=== PATIENT | male | born 1955 | race Caucasian/White ===

== ENCOUNTER 2016-11-05 07:20 | Day surgery (SDC) | payer MEDICARE, BC ==
[2016-11-02 11:25] VITALS: BMI 29.1
[~2016-11-05 07:20] MED LIST: LACTATED RINGERS 1,000 ML IV SCH; LIDOCAINE 1% 20 ML VIAL (10MG/ML) FOR IV START INTRADERMA PRN
[2016-11-05 07:39] VITALS: RESP 18; TEMP 98
[2016-11-05] MEDS ORDERED: LIDOCAINE 1% INJ 10MG/ML (20 ML MDV) ONE (08:15)
[2016-11-05] MEDS ORDERED: PROPOFOL 10 MG/ML 20 ML VIAL IV ONE (08:15)
--- NOTE | 2016-11-05 08:58 | P.PCN ---
Date of Procedure: 11/05/16 Preoperative Diagnosis: Screening for colon cancer, history of colon polyps Postoperative Diagnosis: Screening for colon polyps Procedure(s) Performed: Colonoscopy with polypectomy and biopsy using cold biopsy forceps Implants: Anesthesia: ISAIAS Surgeon: Corie Robison Pathology: other Condition: stable Indications for Procedure: Operative Findings: Description of Procedure: The patient was brought to the endoscopy suite and placed in lateral decubitus position. IV sedation was given as per anesthesia team. A timeout was performed to verify correct patient and correct procedure.Perianal examination did not reveal any external hemorrhoids. Digital rectal examination was performed. Normal sized prostate. A well- lubricated endoscope was passed per rectally and was gradually advanced beyond the sigmoid colon, splenic flexure, transverse colon, hepatic flexure and cecum. The ileocecal valve was visualized. Then minimal diverticulosis noted without any evidence of diverticulitis. Scope was gradually withdrawn inspecting all the mucosal surfaces. Polyps were seen in the descending colon at and removed with a cold biopsy forceps. Another polyp was seen in the rectum that was removed witha cold biopsy forcpes. Bowel prep was good. No other polyps or masses noted. Retroflexed in the rectum and multiple grade 2 internal hemorrhoids were noted which was not bleeding at this time.Colon was spastic and redundant. The scope was gradually withdrawn. Patient tolerated the procedure well and was taken to post anesthesia care unit in stable condition. Recommend repeat colonoscopy in 3 years
[2016-11-05 09:26] VITALS: BP 127/66; PULSE 60
== END 2016-11-05 09:44 | disposition home or self-care (01) ==
LOC: ORWHC2ENDO 07:20
PROVIDERS: ATTEND Surgery
DX: Z12.11 Encounter for screening for malignant neoplasm of colon (principal); D12.4 Benign neoplasm of descending colon; K62.1 Rectal polyp; K57.30 Diverticulosis of large intestine without perforation or abscess without bleeding; K64.1 Second degree hemorrhoids; K58.9 Irritable bowel syndrome, unspecified; Q43.8 Other specified congenital malformations of intestine; K21.9 Gastro-esophageal reflux disease without esophagitis; E11.9 Type 2 diabetes mellitus without complications; Z79.84 Long term (current) use of oral hypoglycemic drugs; I10 Essential (primary) hypertension; E78.5 Hyperlipidemia, unspecified; Z79.82 Long term (current) use of aspirin; Z79.899 Other long term (current) drug therapy; M10.9 Gout, unspecified; J84.89 Other specified interstitial pulmonary diseases
CPT/HCPCS: 88305; 45380; J2001; J2704

== ENCOUNTER → 2016-12-10 | Outpatient (CLI) | payer MEDICARE, BC ==
--- NOTE | 2016-12-10 11:49 | PN ---
PROGRESS NOTE A 61-year-old gentleman who has been followed in the Sleep Center for treatment of obstructive sleep apnea-hypopnea syndrome. Patient continued to use his BiPAP equipment every night without problems. No snoring with the machine. [place] Sleepiness Scale today is only 3. I checked patient's BiPAP unit. Pressure is 14/10 cm of water. Usage is 30/30 nights for more than 4 hours. Average usage is 6.6 hours. Leak is 29 L/minute, which is borderline and acceptable. Apnea-hypopnea index is only 0.2 per hour which is extremely good results. MEDICATIONS: At the present time are Klor-Con, metformin, furosemide, allopurinol, omeprazole, atorvastatin, magnesium, vitamin D, and aspirin. PHYSICAL EXAM: Patient in no distress. BP 120/72, HR 66, RR 16. height 5, 10, weight 274, which is 2 pounds less than during previous visit, BMI 33.5, temperature 97.7, oxygen saturation at room air 98%. OROPHARYNX: Moderate low position of soft palate. Neck Supple, no JVD. Thyroid is not palpable. LUNGS Clear to percussion and to auscultation. Good air exchange. No wheezing or rhonchi. HEART S1, S2 regular. No murmurs, gallops, or rubs. ABDOMEN Soft and nontender. Bowel sounds are present. No organomegaly appreciated. EXTREMITIES No clubbing or cyanosis. PRECISION THREAD GRINDER OPERATOR Awake, alert, and oriented X3. Cranial nerves 2 to 7 intact. There is no fasciculation or atrophy. noted. No focal deficits observed. IMPRESSION: 1. Obstructive sleep apnea-hypopnea syndrome, on full control with BiPAP. Patient demonstrated 100% compliance with treatment benefitting from treatment. 2. Hypertension. 3. Acid reflux. 4. Gout. 5. Diabetes mellitus. 6. Hyperlipidemia. 7. Status post left hip replacement, status post bilateral hip replacement. 8. Status post leg surgery. PLAN: 1. Continue treatment with BiPAP every night for the whole night. 2. Prescription for all necessary BiPAP supplies, including mask, tube, filters. 3. Losing weight. 4. Sleep hygiene with regular time in bed for at least 8 hours. 5. Followup visit in 1 year or sooner if patient has any problems. Thank you very much for allowing me to participate in the management of your patient. Sincerely, Donnie Montgomery MD, PhD, FAASM Diplomat of [place] [employer] [employer] Dredge Lever Operator of [facility] [place] MMMILDRED / AMELIA: [id number] /
== END | disposition home or self-care (01) ==
LOC: SLEEP 10:38
PROVIDERS: ATTEND Internal Medicine
DX: G47.33 Obstructive sleep apnea (adult) (pediatric) (principal); I10 Essential (primary) hypertension; K21.9 Gastro-esophageal reflux disease without esophagitis; E78.5 Hyperlipidemia, unspecified; Z96.642 Presence of left artificial hip joint; Z96.641 Presence of right artificial hip joint; Z98.890 Other specified postprocedural states

== ENCOUNTER → 2017-12-09 | Outpatient (CLI) | payer MEDICARE, BC ==
--- NOTE | 2017-12-09 12:36 | SFUN ---
SLEEP CENTER FOLLOW UP NOTE DATE OF SERVICE: 12/09/2017 A 62-year-old gentleman who has been followed in the Sleep Center for treatment of obstructive sleep apnea-hypopnea syndrome. Patient successfully continued to use his CPAP equipment every night for the whole night without significant problems. Recently some changes in the base of his chamber for heated humidifier. [place] Sleepiness Scale today is only 2. I checked his BiPAP unit, pressure is 14/10 cm of water. Usage is 28/30 nights for more than 4 hours. Average usage is 6.2 hours. Leak is up to 36 L/minute, but total apnea- hypopnea index is perfect only 0.2. MEDICATIONS: Klor-Con, metformin, furosemide, allopurinol, omeprazole, atorvastatin, aspirin, vitamin B12. PHYSICAL EXAM: Patient in no distress. BP 131/83, HR 89, RR 16, height 5, 10, weight 230.0, body mass index 33.0, temperature 97.0, oxygen saturation at room air 98%. OROPHARYNX: Low position of soft palate. Neck Supple, no JVD. Thyroid is not palpable. LUNGS Clear to percussion and to auscultation. Good air exchange. No wheezing or rhonchi. HEART S1, S2 regular. No murmurs, gallops, or rubs. ABDOMEN Soft and nontender. Bowel sounds are present. No organomegaly appreciated. EXTREMITIES No clubbing or cyanosis. ROAD MACHINE OPERATOR Awake, alert, and oriented X3. Cranial nerves 2 to 7 intact. There is no fasciculation or atrophy. noted. No focal deficits observed. IMPRESSION: 1. Obstructive sleep apnea-hypopnea syndrome. Patient demonstrated great compliance with treatment, benefitting from treatment. 2. Mild obesity, body mass index 33.0. 3. Hypertension. 4. Acid reflux. 5. Gout. 6. Diabetes mellitus. 7. Hyperlipidemia. 8. Status post bilateral hip replacement. PLAN: 1. Patient will continue to use his BiPAP equipment every night for the whole night. 2. Prescription to replace chamber for heated humidifier and prescription for all necessary BiPAP supplies. 3. Watching weight. 4. No driving if feeling any sleepiness. 5. Followup visit in 1 year or earlier if patient has any problems. Thank you very much for allowing me to participate in the management of your patient. Sincerely, Donnie Montgomery MD, PhD, FAASM Diplomat of [employer] [employer] Specialties [employer] [employer] of Internal Medicine Route Clerk of [facility] [place] MMMILDRED / ROMANN: [id number] /
== END | disposition home or self-care (01) ==
LOC: SLEEP 11:43
PROVIDERS: ATTEND Internal Medicine
DX: G47.33 Obstructive sleep apnea (adult) (pediatric) (principal); E66.9 Obesity, unspecified; I10 Essential (primary) hypertension; K21.9 Gastro-esophageal reflux disease without esophagitis; M10.9 Gout, unspecified; E11.9 Type 2 diabetes mellitus without complications; E78.5 Hyperlipidemia, unspecified; Z96.643 Presence of artificial hip joint, bilateral; Z68.33 Body mass index [BMI] 33.0-33.9, adult; Z99.89 Dependence on other enabling machines and devices; Z79.84 Long term (current) use of oral hypoglycemic drugs; Z79.82 Long term (current) use of aspirin; Z79.899 Other long term (current) drug therapy

== ENCOUNTER → 2018-12-15 | Outpatient (CLI) | payer MEDICARE, BC ==
--- NOTE | 2018-12-15 11:11 | SFUN ---
SLEEP CENTER FOLLOW UP NOTE DATE OF SERVICE: 12/15/2018 This 63-year-old gentleman had been followed in the sleep center for treatment of obstructive sleep apnea-hypopnea syndrome. Patient successfully continuing to use his CPAP equipment every night for the whole night without significant problems related to mask fitting, pressure or humidification. He sleeps well. [place] Sleepiness Scale today is 1. I checked his BiPAP unit. BiPAP pressure is 14/10 cm of water. Usage is 28 out of 30 nights and 25 out of 30 nights for more than 4 hours with average usage 5.4 hours. Leak 28 L/minutes which is borderline. Apnea-hypopnea index only 0.1, which is absolutely perfect. MEDICATIONS: Metformin, furosemide, allopurinol, Klor-Con, omeprazole, atorvastatin, aspirin, vitamin B12. PHYSICAL EXAMINATION: During physical exam, patient in no distress. VITAL SIGNS: BP 121/72, HR 68, RR 16, height 5 feet 10 inches, weight 225, body mass index 32.2, temperature 97.0, oxygen saturation at room air 97% HEENT: PERRLA, EOMI. Oropharynx low position of soft palate. Mallampati 3. NECK:Supple, no JVD. Thyroid is not palpable. LUNGS: Clear to percussion and to auscultation. Good air exchange. No wheezing or rhonchi. HEART: S1, S2 regular. No murmurs, gallops, or rubs. ABDOMEN: Soft and nontender. Bowel sounds are present. No organomegaly appreciated. EXTREMITIES: No clubbing or cyanosis. MANAGER CASINO: Awake, alert, and oriented X3. Cranial nerves 2 to 7 intact. There is no fasciculation or atrophy. noted. No focal deficits observed. IMPRESSION: 1. Obstructive sleep apnea-hypopnea syndrome. Patient demonstrated great compliance with treatment, benefitting from treatment. 2. Hypertension. 3. Acid reflux. 4. Mild obesity, body mass index 32.2. 5. Gout. 6. Hyperlipidemia. 7. Status post bilateral hip replacement. PLAN: 1. Patient will continue to use BiPAP equipment every night for the whole night. 2. Sleep hygiene with regular time in bed for at least 7-1/2 hours. 3. Precautions related to driving. No driving if feeling sleepiness. 4. Prescription for all necessary CPAP supplies including nasal pillow mask, heated tube filters. 5. Decision made not necessary to change any of BiPAP pressure at the present time. 6. Follow-up appointment in one year or earlier if patient has any problems. Thank you very much for allowing me to participate in management of your patient. Sincerely, Donnie Montgomery MD, PhD, FAASM Diplomat of [place] [employer] Special[employer] Board of Internal Medicine Prospect Manager of [facility] [place] MMODL / IJN: [id number] /
== END | disposition home or self-care (01) ==
LOC: SLEEP 09:47
PROVIDERS: ATTEND Internal Medicine
DX: G47.33 Obstructive sleep apnea (adult) (pediatric) (principal); I10 Essential (primary) hypertension; K21.9 Gastro-esophageal reflux disease without esophagitis; E66.9 Obesity, unspecified; Z68.32 Body mass index [BMI] 32.0-32.9, adult; M10.9 Gout, unspecified; E78.5 Hyperlipidemia, unspecified; Z96.643 Presence of artificial hip joint, bilateral; Z99.89 Dependence on other enabling machines and devices; Z79.84 Long term (current) use of oral hypoglycemic drugs; Z79.82 Long term (current) use of aspirin; Z79.899 Other long term (current) drug therapy

== ENCOUNTER → 2019-11-30 | Outpatient (CLI) | payer MEDICARE, BC ==
--- NOTE | 2019-11-30 18:25 | SFUN ---
SLEEP CENTER FOLLOW UP NOTE DATE OF SERVICE: 11/30/2019 This patient is a 65-year-old gentleman who has been followed in Sleep Center for treatment of obstructive sleep apnea-hypopnea syndrome. Patient continues to use his CPAP equipment every night for the whole night. He is getting new supplies in time. No snoring with the machine. [place] Sleepiness Scale today is 2, which is normal. I checked his BiPAP unit. Pressure is 14/10 cm of water, usage 28/30 nights for more than 4 hours with average usage 5 hours per night, which is good compliance. Leak is 13 L/minute, which is borderline. Apnea-hypopnea index only 0.1, which is absolutely perfect. MEDICATIONS: 1. Metformin 1000 mg b.i.d. 2. Potassium supplement 20 mEq b.i.d. 3. Furosemide 40 mg once a day. 4. Omeprazole 40 mg once a day. 5. Atorvastatin 10 mg once a day. 6. Allopurinol 300 mg once a day. PHYSICAL EXAMINATION: GENERAL: A pleasant patient in no distress. VITAL SIGNS: BP 118/74, HR 74, RR 16, height 5 feet 10 inches, weight 231.2. The patient's weight increased by 6 pounds compared to the previous visit. Temperature 97.6, oxygen saturation on room air 100%. HEENT: PERRLA, EOMI. Evaluation of oropharynx showed tongue protrudes midline. NECK: Supple. No JVD. Thyroid is not palpable. LUNGS: Clear to percussion and to auscultation. Good air exchange. No wheezing or rhonchi. HEART: S1, S2 regular. No murmurs, gallops or rubs. ABDOMEN: Soft and nontender. Bowel sounds are present. No organomegaly. EXTREMITIES: No clubbing or cyanosis. RESEARCH ENVIRONMENTAL SCIENTIST: Awake, alert, and oriented X3. Cranial nerves 2 to 7 intact. There is no fasciculation or atrophy. noted. No focal deficits observed. IMPRESSION: 1. Obstructive sleep apnea-hypopnea syndrome. The patient demonstrated close to 100% compliance with treatment, benefitting from treatment. 2. Mild obesity. Patient's weight increased by 6 pounds since previous visit. 3. Hypertension. Today blood pressure is normal. 4. Acid reflux. 5. Gout. 6. Hyperlipidemia. 7. Status post bilateral hip replacement. PLAN: 1. Patient will continue to use PAP equipment every night for the whole night. 2. Sleep hygiene with regular time in bed for at least 7-1/2 to 8 hours. 3. Precautions related to driving. No driving if feeling sleepiness. 4. I will maintain all necessary prescription for PAP supplies including mask, tube, filters. 5. Watching weight. 6. No driving if feeling sleepiness. 7. Follow-up visit in 6 months or earlier if patient has any problems. Thank you very much for allowing me to participate in the management of your patient. Sincerely, Donnie Montgomery MD, PhD, FAASM Diplomat of [place] [employer] Special[employer] [employer] of Internal Medicine Mail Handler Sorter of [facility] [place] MMODL / IJN: [id number] /
== END | disposition home or self-care (01) ==
LOC: SLEEP 10:03
PROVIDERS: ATTEND Internal Medicine
DX: G47.33 Obstructive sleep apnea (adult) (pediatric) (principal); E66.9 Obesity, unspecified; I10 Essential (primary) hypertension; K21.9 Gastro-esophageal reflux disease without esophagitis; M10.9 Gout, unspecified; E78.5 Hyperlipidemia, unspecified; Z96.643 Presence of artificial hip joint, bilateral; Z99.89 Dependence on other enabling machines and devices; Z79.891 Long term (current) use of opiate analgesic; Z79.899 Other long term (current) drug therapy; Z79.84 Long term (current) use of oral hypoglycemic drugs

== ENCOUNTER → 2020-06-06 | Outpatient (CLI) | payer MEDICARE, BC ==
--- NOTE | 2020-06-06 11:38 | SFUN ---
SLEEP CENTER FOLLOW UP NOTE DATE OF SERVICE: 06/06/2020 This 65-year-old gentleman has been followed in Sleep Center for treatment of obstructive sleep apnea-hypopnea syndrome. The patient continues to use his BiPAP equipment every night. No snoring with the machine. He lost some weight since previous visit. According to him, he is getting his supplies in time and changing his mask regularly. [place] Sleepiness Scale today is 2 which is normal. I checked his BiPAP unit. BiPAP pressure 14/10 cm of water, usage 29 out of 30 nights more than 4 hours, average usage 5.6 hours per night. Leak is 17 L/minute, which is borderline. Apnea-hypopnea index only 0.1, which is perfect. MEDICATIONS: Metformin 1000 mg twice a day, furosemide 40 mg once a day, potassium supplement 20 mEq twice a day, omeprazole 40 mg once a day, atorvastatin 10 mg once a day, allopurinol 300 mg once a day. PHYSICAL EXAMINATION: GENERAL: Patient in no distress. VITAL SIGNS: BP 124/79, HR 87, RR 15, height 5 feet 10-1/2 inches, weight 205.2, temperature 98.3, oxygen saturation at room air 98%. HEENT: PERRLA, EOMI, evaluation of oropharynx showed tongue protrudes midline. NECK: Supple, no JVD. Thyroid is not palpable. LUNGS: Clear to percussion and to auscultation. Good air exchange. No wheezing or rhonchi. HEART: S1, S2 regular. No murmurs, gallops, or rubs. ABDOMEN: Soft and nontender. Bowel sounds are present. No organomegaly appreciated. EXTREMITIES: No clubbing or cyanosis. PHY THERAPIST: Awake, alert, and oriented X3. Cranial nerves 2 to 7 intact. There is no fasciculation or atrophy. noted. No focal deficits observed. IMPRESSION: 1. Obstructive sleep apnea-hypopnea syndrome. The patient demonstrated 100% compliance with treatment, benefitting from treatment. 2. Hypertension. 3. Acid reflux. 4. Gout. 5. Hyperlipidemia. 6. Status post bilateral hip replacement in 2011 and 2015. 7. The patient lost weight from 231 pounds down to 205 pounds. Subsequently his body mass index came to the level of overweight but below obesity range. With losing weight, patient's blood sugar also improved. PLAN: 1. Patient will continue to use PAP equipment every night for the whole night. 2. Sleep hygiene with regular time in bed for at least 7-1/2 to 8 hours. 3. Precautions related to driving. No driving if feeling sleepiness. 4. I will maintain all necessary prescription for PAP supplies including mask, tube, filters. 5. Watching weight. 6. Follow-up visit in 6 months or earlier if patient has any problems. Thank you very much for allowing me to participate in management of your patient. Sincerely, Donnie Montgomery MD, PhD, FAASM Diplomat of [place] [employer] Specialties [place] Board of Internal Medicine Oracle Specialist of [facility] [place] MMODL / IJN: [id number] /
== END ==
LOC: SLEEP 09:59
PROVIDERS: ATTEND Internal Medicine
DX: G47.33 Obstructive sleep apnea (adult) (pediatric) (principal); I10 Essential (primary) hypertension; K21.9 Gastro-esophageal reflux disease without esophagitis; M10.9 Gout, unspecified; E78.5 Hyperlipidemia, unspecified; Z96.643 Presence of artificial hip joint, bilateral; Z99.89 Dependence on other enabling machines and devices

== ENCOUNTER → 2020-12-12 | Outpatient (CLI) | payer MEDICARE, BC ==
--- NOTE | 2020-12-12 12:06 | SFUN ---
SLEEP CENTER FOLLOW UP NOTE DATE OF SERVICE: 12/12/2020 This 65-year-old gentleman has been followed in Sleep Center for treatment of obstructive sleep apnea-hypopnea syndrome. The patient continues to use his BiPAP equipment every night for the whole night. No problem with usage. No snoring. [place] Sleepiness Scale today is 2. I checked his BiPAP unit. Pressure is 14/10 cm of water. Usage is 28/30 nights and 24/30 nights for more than 4 hours with average usage 4.8 hours per night. Leak is 8 L/minute, which is in normal range. Apnea-hypopnea index is only 0.1, which is absolutely perfect. MEDICATIONS: 1. Furosemide 40 mg once a day. 2. Potassium supplement. 3. Omeprazole 40 mg once a day. 4. Metformin 1000 mg twice a day. 5. Atorvastatin 10 mg once a day. 6. Allopurinol 300 mg once a day. PHYSICAL EXAMINATION: GENERAL: Pleasant patient in no distress. VITAL SIGNS: BP 138/73, HR 77, RR 15, height 5 feet 11 inches, weight 215, body mass index 29.9. The patient's weight increased by 10 pounds compared to the previous visit. HEENT: PERRLA, EOMI, evaluation of oropharynx showed tongue protrudes midline. NECK: Supple, no JVD. Thyroid is not palpable. LUNGS: Clear to percussion and to auscultation. Good air exchange. No wheezing or rhonchi. HEART: S1, S2 regular. No murmurs, gallops, or rubs. ABDOMEN: Soft and nontender. Bowel sounds are present. No organomegaly appreciated. EXTREMITIES: No clubbing or cyanosis. ORDER PULLER: Awake, alert, and oriented X3. Cranial nerves 2 to 7 intact. There is no fasciculation or atrophy. noted. No focal deficits observed. IMPRESSION: 1. Obstructive sleep apnea-hypopnea syndrome. Patient demonstrated great compliance with treatment. Normal respiration on CPAP. 2. Hypertension. 3. Acid reflux. 4. Gout. 5. Hyperlipidemia. 6. Status post bilateral hip replacement. PLAN: 1. Patient will continue to use PAP equipment every night for the whole night. 2. Sleep hygiene with regular time in bed for at least 7-1/2 to 8 hours. 3. Precautions related to driving. No driving if feeling sleepiness. 4. I will maintain all necessary prescription for PAP supplies including mask, tube, filters. 5. Watching weight. 6. Follow-up visit in 6 months or earlier if patient has any problems. Thank you very much for allowing me to participate in the management of your patient. Sincerely, Donnie Montgomery MD, PhD, FAASM Diplomat of [place] [employer] Sleep Medicine Board of [place] [employer] of Internal Medicine Landscape Maintenance Internship of [facility] [place] MMODL / ROMANN: [id number] /
== END ==
LOC: SLEEP 09:49
PROVIDERS: ATTEND Internal Medicine
DX: G47.33 Obstructive sleep apnea (adult) (pediatric) (principal); I10 Essential (primary) hypertension; K21.9 Gastro-esophageal reflux disease without esophagitis; E78.5 Hyperlipidemia, unspecified; M10.9 Gout, unspecified; Z99.89 Dependence on other enabling machines and devices; Z96.643 Presence of artificial hip joint, bilateral; Z79.899 Other long term (current) drug therapy

== ENCOUNTER → 2021-06-12 | Outpatient (CLI) | payer MEDICARE, BC ==
--- NOTE | 2021-06-12 13:05 | SFUN ---
SLEEP CENTER FOLLOW UP NOTE DATE OF SERVICE: 06/12/2021. 66-year-old gentleman has been followed in Sleep Center for treatment of obstructive sleep apnea-hypopnea syndrome. Patient continued to use his CPAP equipment every night for the whole night. No snoring with the machine. [place] Sleepiness Scale today is 2 which is absolutely normal. I checked his BiPAP unit. Pressure is 14/10 cm of water. Usage is 29/30 nights and 26/30 nights for more than 4 hours. Average usage 4.9 hours per night which is good compliance. Leak is 12 L/minute, which is normal. Apnea-hypopnea index only 0.1 per hour which is perfect. MEDICATIONS: Metformin 1000 mg twice a day, omeprazole 40 mg once a day, furosemide 40 mg once a day, atorvastatin 10 mg once a day, allopurinol 300 mg once a day. PHYSICAL EXAMINATION: GENERAL: Patient in no distress. BP 148/75, HR 91, RR 16, height 5 feet 11 inches, weight 220.6 pounds. Patient increased his weight 5 pounds compared with the previous visit. Temperature 97.3, oxygen saturation at room air 97%. HEENT: PERRLA, EOMI, evaluation of oropharynx showed tongue protrudes midline. NECK: Supple, no JVD. Thyroid is not palpable. LUNGS: Clear to percussion and to auscultation. Good air exchange. No wheezing or rhonchi. HEART: S1, S2 regular. No murmurs, gallops, or rubs. ABDOMEN: Soft and nontender. Bowel sounds are present. No organomegaly appreciated. EXTREMITIES: No clubbing or cyanosis. RENDERER: Awake, alert, and oriented X3. Cranial nerves 2 to 7 intact. There is no fasciculation or atrophy. noted. No focal deficits observed. IMPRESSION: 1. Obstructive sleep apnea-hypopnea syndrome patient demonstrated close to 100% compliance with treatment benefitting from treatment. 2. Hypertension. 3. Hyperlipidemia. 4. Acid reflux. 5. Gout. 6. Status post bilateral hip replacement. PLAN: 1. New prescription for all necessary CPAP supplies have been written including Atkinson LT large size nasal pillow mask, tube filters. 2. Patient will continue to use PAP equipment every night for the whole night. 3. Sleep hygiene with regular time in bed for at least 7-1/2 to 8 hours. 4. Precautions related to driving. No driving if feeling sleepiness. 5. I will maintain all necessary prescription for PAP supplies including mask, tube, filters. 6. Watching weight. 7. Follow-up visit in 6 months or earlier if patient has any problems. Thank you very much for allowing me to participate in management of your patient. Sincerely, Donnie Montgomery MD, PhD, FAASM Diplomat of [place] [employer] Specialties Sleep Medicine Board of [employer] Board of Internal Medicine Coat Presser of [facility] [place] MMODL / IJN: [id number] /
== END ==
LOC: SLEEP 09:52
PROVIDERS: ATTEND Internal Medicine
DX: G47.33 Obstructive sleep apnea (adult) (pediatric) (principal); I10 Essential (primary) hypertension; E78.5 Hyperlipidemia, unspecified; K21.9 Gastro-esophageal reflux disease without esophagitis; M10.9 Gout, unspecified; Z96.643 Presence of artificial hip joint, bilateral; Z99.89 Dependence on other enabling machines and devices

== ENCOUNTER → 2022-01-08 | Outpatient (CLI) | payer MEDICARE, BC ==
--- NOTE | 2022-01-08 10:39 | P.PN ---
Subjective DATE: 01/08/2022 FOLLOW UP VISIT. Patient with obstructive sleep apnea hypopnea syndrome return to sleep center for follow-up visit. Information from previous visit have been reviewed. Patient is using BPAP equipment every night for the whole night, getting BPAP supplies in time. The patient does not have significant problems with the mask, BPAP unit and humidification. [place] sleepiness scale is2, which is perfect. I checked information from BPAP unit. BPAP unit pressure 14/10 cm H2O. Usage is 100 % for more then 4 hours, average 7.1 hours per night. Leak is 12 l/m, which is in acceptable range. Apnea Hypopnea Index is 0.3, which is great. MEDICATIONS:1. Metformin 1000 mg twice a day 2. Omeprazole 40 mg once a day 3. For as she might 30 mg once a day 4. Atorvastatin 10 mg once a day 5. Allopurinol 300 mg once a day During physical exam: GENERAL: A pleasant patient without any distress. VITAL SIGNS: BP 162/78, HR 88, RR 16, weight 215, temperature 98.2, oxygen saturation at room air 99 % . HEENT: PERRLA, EOMI.low position of soft palate, Mallapati 3 . NECK: Supple. No JVD. LUNGS: Clear to percussion and to auscultation. Good air exchange. No wheezing or rhonchi. HEART: S1, S2 regular. ABDOMEN: Soft and nontender.[] EXTREMITIES: No clubbing or cyanosis. DRIVER UTILITY WORKER: Awake, alert, and oriented x3. No focal deficit. Impressions: 1. Obstructive sleep apnea-hypopnea syndrome. Patient demonstrated great compliance with treatment, benefiting from treatment. 2. Hypertension. 3. Hyperlipidemia. 4. Acid reflux. 5. Gout. 6. Status post bilateral hip replacement. Plan: 1. Continue using PAP equipment every night for the whole night. 2. To change air filter at least 1-2 times per month. 3. PAP unit should stay lower then position of the head. 4. Advised patient to remove all remaining water from humidifier canister daily and make it dry after each usage. Refill canister with fresh distilled water before each usage. 5. Sleep hygiene with regular time in bed for at least 8 hours. 6. Precautions related to driving. No driving if feel any sleepiness. 7. I will maintain prescription for PAP supplies including mask, tube, filters. 8. Follow up visit in 6 months or earlier if patient has any problems. 9. Watching weight. Thank you very much for allowing me to participate in the management of your patient. Donnie Montgomery MD, PhD, FAASM. Diplomat of [place] [employer] Medicine, Sleep Medicine Board by [place] [employer] Medicine Pumping Supervisor of [facility] [place]
== END ==
LOC: SLEEP 09:57
PROVIDERS: ATTEND Internal Medicine
DX: G47.33 Obstructive sleep apnea (adult) (pediatric) (principal); I10 Essential (primary) hypertension; E78.5 Hyperlipidemia, unspecified; M10.9 Gout, unspecified; K21.9 Gastro-esophageal reflux disease without esophagitis; Z96.643 Presence of artificial hip joint, bilateral; Z99.89 Dependence on other enabling machines and devices
CPT/HCPCS: 99212

== ENCOUNTER 2022-02-12 07:32 | Day surgery (SDC) | payer MEDICARE, BC ==
[2022-02-09 15:42] VITALS: BMI 28.2
[~2022-02-12 07:32] MED LIST changes: +LIDOCAINE 1% (10MG/ML) FOR IV START INTRADERMA PRN; -LIDOCAINE 1% 20 ML VIAL (10MG/ML) FOR IV START INTRADERMA PRN
--- NOTE | 2022-02-12 08:02 | P.GSHP ---
History of Present Illness H&P Date: 02/12/22 CHIEF COMPLAINT: Colon screen HISTORY OF PRESENT ILLNESS: The patient is a 66-year-old male who presents for colon screen. Lower endoscopy was offered for further evaluation and management. PAST MEDICAL HISTORY: Please see list. PAST SURGICAL HISTORY: Please see list. MEDICATIONS: Please see list. ALLERGIES: Please see list. SOCIAL HISTORY: No illicit drug use FAMILY HISTORY: No reports of Crohn disease or ulcerative colitis. REVIEW OF ORGAN SYSTEMS: CONSTITUTIONAL: No reports of fevers or chills. PHYSICAL EXAM: VITAL SIGNS: Stable GENERAL: Well-developed pleasant in no acute distress. HEENT: No scleral icterus. Extraocular movements grossly intact. Moist buccal mucosa. NECK: Supple without lymphadenopathy. CHEST: Unlabored respirations. Equal bilateral excursions. CARDIOVASCULAR: Regular rate and rhythm. Distal 2+ pulses. ABDOMEN: Soft, nontender, nondistended. MUSCULOSKELETAL: No clubbing, cyanosis, or edema. ASSESSMENT: 1. Colon screen. PLAN: 1. Recommend proceeding with a lower endoscopy Past Medical History Past Medical History: Diabetes Mellitus, Fibromyalgia, Pneumonia, Sleep Apnea/CPAP/BIPAP Additional Past Medical History / Comment(s): INTERSTITIAL LUNG DISEASE, PT DISABLED- USES MOTORIZED W/C. gout, uses BIPAP, leg swelling, has had hx. low platelets in the past thru Dr Ramsey's office-not sure why they are low, diverticular dx. History of Any Multi-Drug Resistant Organisms: None Reported Past Surgical History: Joint Replacement Additional Past Surgical History / Comment(s): Other surgical hx: L knee arthroscopy, TOTAL LEFT KNEE REPLACEMENT AND REVISION, TOTAL MARSHA. HIP, R LUNG BX AND PARTIAL RIGHT LUNG REMOVED, colonoscopy. Past Anesthesia/Blood Transfusion Reactions: No Reported Reaction Past Psychological History: No Psychological Hx Reported Smoking Status: Never smoker Past Alcohol Use History: None Reported Past Drug Use History: None Reported - Past Family History Mother Family Medical History: Congestive Heart Failure (CHF), Diabetes Mellitus Additional Family Medical History / Comment(s): Mother of CHF at the age of 66 yrs. Father Family Medical History: Dementia Additional Family Medical History / Comment(s): Father of dementia at the age of 77yrs. Medications and Allergies Home Medications Medication Instructions Recorded Confirmed Type Furosemide [Lasix] 40 mg PO DAILY 10/13/13 02/09/22 History Omeprazole [PriLOSEC] 40 mg PO DAILY 10/13/13 02/09/22 History Potassium Chloride [Klor-Con 20] 20 meq PO BID 10/13/13 02/09/22 History allopurinoL [Zyloprim] 300 mg PO DAILY 10/13/13 02/09/22 History metFORMIN HCL [Glucophage] 1,000 mg PO BID 10/13/13 02/09/22 History Atorvastatin [Lipitor] 10 mg PO DAILY 10/21/15 02/09/22 History Aspirin 325 mg PO DAILY #30 tab 10/31/15 02/09/22 Rx Hydrocortisone [Cortef] 10 mg PO DAILY 02/09/22 02/09/22 History Allergies Allergy/AdvReac Type Severity Reaction Status Date / Time No Known Allergies Allergy Verified 02/09/22 15:35
[2022-02-12 08:14] VITALS: TEMP 97.4
[2022-02-12 08:25] LABS: Glucose,Whole Blood 102 mg/dL (70-110)
[2022-02-12] MEDS ORDERED: LIDOCAINE 2% INJ 20 MG/ML (2 ML VIAL) ONE (09:40)
[2022-02-12] MEDS ORDERED: PROPOFOL 10 MG/ML 20 ML VIAL IV ONE (09:40)
--- NOTE | 2022-02-12 10:06 | P.PCN ---
Date of Procedure: 02/12/22 Description of Procedure: PREOPERATIVE DIAGNOSIS: Personal history colon polyps Colonoscopy screening. POSTOPERATIVE DIAGNOSIS: Personal history colon polyps Colonoscopy screening. OPERATION: Colonoscopy to the cecum, ileocecal valve and appendiceal orifice. SURGEON: Judi Joaquin MD. ANESTHESIA: MAC. INDICATIONS: The patient is a 66-year-old male who presents for colonoscopy screening. Last colonoscopy 5 years ago. Benefits and risks were described and informed consent was obtained. DESCRIPTION OF PROCEDURE: The patient had undergone Sutab prep. The patient had been brought into the operating room and laid in the left lateral decubitus position. After adequate intravenous sedation, the rectum was examined with 2% lidocaine jelly. Prostate unremarkable. No external hemorrhoids were encountered. The rectal tone was within normal limits. No lesions were palpated in the rectal vault. An Olympus colonoscope was advanced until the cecum, ileocecal valve and appendiceal orifice were clearly viewed. The prep was excellent. Scattered diverticulosis was encountered. No colonic polyps were found. No evidence of focal colitis was found. Retroflexion of the scope demonstrated grade 1 internal hemorrhoids without active bleeding or inflammation. The colon was desufflated. The patient had tolerated the procedure well. Withdrawal time was over 6 minutes. FINDINGS: Aronchick preparation quality scale 3 (1-5) Internal hemorrhoids, grade 1 No external prolapsed hemorrhoids. No arteriovenous malformations. No adenomatous polyps. No focal colitis. No sigmoid diverticulosis. RECOMMENDATIONS: Lower endoscopy in 5 years, 2026. Plan - Discharge Summary Discharge Rx Participant: No New Discharge Prescriptions: Continue Omeprazole [PriLOSEC] 40 mg PO DAILY allopurinoL [Zyloprim] 300 mg PO DAILY metFORMIN HCL [Glucophage] 1,000 mg PO BID Furosemide [Lasix] 40 mg PO DAILY Potassium Chloride [Klor-Con 20] 20 meq PO BID Atorvastatin [Lipitor] 10 mg PO DAILY Aspirin 325 mg PO DAILY #30 tab Hydrocortisone [Cortef] 10 mg PO DAILY Discharge Medication List Furosemide [Lasix] 40 mg PO DAILY 10/13/13 [History] Omeprazole [PriLOSEC] 40 mg PO DAILY 10/13/13 [History] Potassium Chloride [Klor-Con 20] 20 meq PO BID 10/13/13 [History] allopurinoL [Zyloprim] 300 mg PO DAILY 10/13/13 [History] metFORMIN HCL [Glucophage] 1,000 mg PO BID 10/13/13 [History] Atorvastatin [Lipitor] 10 mg PO DAILY 10/21/15 [History] Aspirin 325 mg PO DAILY #30 tab 10/31/15 [Rx] Hydrocortisone [Cortef] 10 mg PO DAILY 02/09/22 [History] Follow up Appointment(s)/Referral(s): Judi Joaquin MD [STAFF PHYSICIAN] - As Needed Patient Instructions/Handouts: Colonoscopy (DC) Activity/Diet/Wound Care/Special Instructions: Repeat colonoscopy in 5 years, 2026 Discharge Disposition: HOME SELF-CARE
[2022-02-12 10:16] VITALS: RESP 16
[2022-02-12 10:37] VITALS: BP 118/79; PULSE 68
== END 2022-02-12 10:46 | disposition home or self-care (01) ==
LOC: ORWHC2ENDO 07:32
PROVIDERS: ATTEND Surgery Plastic and Reconstructive Surgery
DX: Z12.11 Encounter for screening for malignant neoplasm of colon (principal); K64.0 First degree hemorrhoids; E11.9 Type 2 diabetes mellitus without complications; G47.33 Obstructive sleep apnea (adult) (pediatric); Z79.899 Other long term (current) drug therapy; Z79.84 Long term (current) use of oral hypoglycemic drugs; Z79.82 Long term (current) use of aspirin; Z96.652 Presence of left artificial knee joint; Z82.49 Family history of ischemic heart disease and other diseases of the circulatory system; Z86.010 Personal history of colon polyps
CPT/HCPCS: G0105; J2704; J2001; 45378

== ENCOUNTER → 2022-07-23 | Outpatient (CLI) | payer MEDICARE, BC ==
--- NOTE | 2022-07-23 10:56 | P.PN ---
Subjective DATE: 07/23/2022 FOLLOW UP VISIT. Patient with obstructive sleep apnea hypopnea syndrome return to sleep center for follow-up visit. Information from previous visit have been reviewed. Patient is using PAP equipment every night for the whole night, getting PAP supplies in time. The patient does not have significant problems with the mask, PAP unit and humidification. [place] sleepiness scale is 2, which is normal. I checked information from PAP unit. BPAP unit pressure 14/10 cm H2O. Usage is 100 % for more then 4 hours, average 7.6 hours per night. Leak is 14 l/m, which is in acceptable range. Apnea Hypopnea Index is 0.1, which is normal. MEDICATIONS:1. Allopurinol 300 mg once a day 2. Metformin 1000 mg twice a day 3. Omeprazole 40 mg once a day 4. Atorvastatin 10 mg once a day During physical exam: GENERAL: A pleasant patient without any distress. VITAL SIGNS: BP 137/79, HR 81, RR 12, weight 211, temperature 97.5, oxygen saturation at room air 97 % . HEENT: PERRLA, EOMI.low position of soft palate, Mallapati 3 . NECK: Supple. No JVD. LUNGS: Clear to percussion and to auscultation. Good air exchange. No wheezing or rhonchi. HEART: S1, S2 regular. ABDOMEN: Soft and nontender.[] EXTREMITIES: No clubbing or cyanosis. STEMHOLE BORER AND TOPPER: Awake, alert, and oriented x3. No focal deficit. Impressions: 1. Obstructive sleep apnea-hypopnea syndrome. Patient demonstrated great compliance with treatment, benefiting from treatment. 2. Diabetes mellitus. 3. Hypertension. 4. Acid reflux. 5. Gout. 6. Status post bilateral hip replacement. Plan: 1. Continue using PAP equipment every night for the whole night. 2. To change air filter at least 1-2 times per month. 3. PAP unit should stay lower then position of the head. 4. Advised patient to remove all remaining water from humidifier canister daily and make it dry after each usage. Refill canister with fresh distilled water before each usage. 5. Sleep hygiene with regular time in bed for at least 8 hours. 6. Precautions related to driving. No driving if feel any sleepiness. 7. I will maintain prescription for PAP supplies including mask, tube, filters. 8. Watching weight. 9. Follow up visit in 6 months or earlier if patient has any problems. Thank you very much for allowing me to participate in the management of your patient. Donnie Montgomery MD, PhD, FAASM. Diplomat of [place] [employer], Sleep Medicine Board by [place] [employer] Railroad Track Mechanic of [facility] [place]
== END | disposition home or self-care (01) ==
LOC: SLEEP 09:55
PROVIDERS: ATTEND Internal Medicine
DX: G47.33 Obstructive sleep apnea (adult) (pediatric) (principal); E11.9 Type 2 diabetes mellitus without complications; I10 Essential (primary) hypertension; K21.9 Gastro-esophageal reflux disease without esophagitis; M10.9 Gout, unspecified; Z96.643 Presence of artificial hip joint, bilateral; Z99.89 Dependence on other enabling machines and devices
CPT/HCPCS: 99212

== ENCOUNTER → 2023-07-15 | Outpatient (CLI) | payer MEDICARE, BC ==
[2023-07-15 10:51] VITALS: BP 125/65; PULSE 85; RESP 16; TEMP 97.8
--- NOTE | 2023-07-15 10:55 | P.PN ---
Subjective DATE: 07/15/2023 FOLLOW UP VISIT. Patient with obstructive sleep apnea hypopnea syndrome return to sleep center for follow-up visit. Information from previous visit have been reviewed. Patient is using PAP equipment every night for the whole night, getting PAP supplies in time. The patient does not have significant problems with the mask, PAP unit and humidification. [place] sleepiness scale is 2, which is normal. I checked information from PAP unit. PAP unit pressure 14/10 cm H2O. Usage is 80% for more then 4 hours, average 7.6 hours per night. Leak is 25 l/m, which is in acceptable range. Apnea Hypopnea Index is 0.2, which is normal. MEDICATIONS:1. Lisinopril 2.5 mg once a day 2. Metformin 1000 mg twice a day 3. Furosemide 40 mg once a day 4. Omeprazole 40 mg once a day 5. Hydrocortisone 5 mg once a day 6. Atorvastatin 10 mg once a day 7. Allopurinol 300 mg once a day During physical exam: GENERAL: A pleasant patient without any distress. VITAL SIGNS: Please see below. HEENT: PERRLA, EOMI.low position of soft palate, Mallapati 3 . NECK: Supple. No JVD. LUNGS: Clear to percussion and to auscultation. Good air exchange. No wheezing or rhonchi. HEART: S1, S2 regular. ABDOMEN: Soft and nontender.[] EXTREMITIES: No clubbing or cyanosis. SETTER OUT: Awake, alert, and oriented x3. No focal deficit. Impressions: 1. Obstructive sleep apnea-hypopnea syndrome. Patient demonstrated good compliance with treatment, benefiting from treatment. 2. Hypertension. 3. Diabetes mellitus. 4. Acid reflux. 5. Status post bilateral hip replacement. 6. Gout. Plan: 1. Continue using PAP equipment every night for the whole night. 2. To change air filter at least 1-2 times per month. 3. PAP unit should stay lower then position of the head. 4. Advised patient to remove all remaining water from humidifier canister daily and make it dry after each usage. Refill canister with fresh distilled water before each usage. 5. Sleep hygiene with regular time in bed for at least 8 hours. 6. Precautions related to driving. No driving if feel any sleepiness. 7. I will maintain prescription for PAP supplies including mask, tube, filters. 8. Follow up visit in 6 months or earlier if patient has any problems. 9. Watching weight. Thank you very much for allowing me to participate in the management of your patient. Donnie Montgomery MD, PhD, FAASM. Diplomat of [place] Board [employer] Sleep Medicine, Sleep Medicine Board by [place] [employer] of [employer] Medicine Senior Talent Acquisition Specialist of [facility] [place] Objective - Vital Signs Vital signs: Vital Signs Temp 97.8 F 07/15/23 10:22 Pulse 85 07/15/23 10:22 Resp 16 07/15/23 10:22 BP 125/65 07/15/23 10:22 Pulse Ox 100 07/15/23 10:22 FiO2
== END ==
LOC: 3 N SLEEP 09:58
PROVIDERS: ATTEND Internal Medicine
DX: G47.33 Obstructive sleep apnea (adult) (pediatric) (principal); I10 Essential (primary) hypertension; E11.9 Type 2 diabetes mellitus without complications; K21.9 Gastro-esophageal reflux disease without esophagitis; M10.9 Gout, unspecified; Z96.643 Presence of artificial hip joint, bilateral; Z99.89 Dependence on other enabling machines and devices; Z79.84 Long term (current) use of oral hypoglycemic drugs; Z79.899 Other long term (current) drug therapy
CPT/HCPCS: 99212

== ENCOUNTER → 2023-09-09 | Outpatient (CLI) | payer MEDICARE, BC ==
[2023-09-09 15:20] VITALS: BP 115/61; PULSE 80; RESP 16; TEMP 97.9
--- NOTE | 2023-09-09 15:42 | P.PROGSL ---
Subjective DATE: 09/09/2023 FOLLOW UP VISIT. Patient with obstructive sleep apnea hypopnea syndrome return to sleep center for follow-up visit. Information from previous visit have been reviewed. Patient is using PAP equipment every night for the whole night, getting PAP supplies in time. The patient does not have significant problems with the mask, BPAP unit and humidification. [place] sleepiness scale is 2, which is perfect. I checked information from BPAP unit. Motor life expectancy was exceeded PAP unit pressure 14/10 cm H2O. Usage is 100% for more then 4 hours, average 7.5 hours per night. Leak is 28 l/m, which is in acceptable range. Apnea Hypopnea Index is 0.1, which is normal. MEDICATIONS have been reviewed, please see below During physical exam: GENERAL: A pleasant patient without any distress. VITAL SIGNS: Please see below, weight 201 pounds, BMI 29.2. HEENT: PERRLA, EOMI.low position of soft palate, Mallapati 3. NECK: Supple. No JVD. LUNGS: Clear to percussion and to auscultation. Good air exchange. No wheezing or rhonchi. HEART: S1, S2 regular. ABDOMEN: Soft and nontender.[] EXTREMITIES: No clubbing or cyanosis. SERVICE COORDINATOR: Awake, alert, and oriented x3. No focal deficit. Impressions: 1. Obstructive sleep apnea-hypopnea syndrome. Patient demonstrated great compliance with treatment, benefiting from treatment. Motor life expectancy was exceeded. BiPAP unit is noisy. 2. Hypertension. 3. Diabetes mellitus. 4. Acid reflux. 5. Gout. 6. Status post bilateral hip replacement. Plan: 1. Continue using PAP equipment every night for the whole night. Prescription to replace BiPAP unit. 2. To change air filter at least 1-2 times per month. 3. PAP unit should stay lower then position of the head. 4. Advised patient to remove all remaining water from humidifier canister daily and make it dry after each usage. Refill canister with fresh distilled water before each usage. 5. Sleep hygiene with regular time in bed for at least 8 hours. 6. Precautions related to driving. No driving if feel any sleepiness. 7. I will maintain prescription for PAP supplies including mask, tube, filters. 8. Follow up visit in 1-3 months after patient will get new BiPAP unit or earlier if patient has any problems. Thank you very much for allowing me to participate in the management of your patient. Donnie Montgomery MD, PhD, FAASM. Diplomat of [place] [employer] Sleep Medicine, Sleep Medicine Board by [place] [employer] Medicine Behaviorist of [facility] [place] Objective - Vital Signs Vital Signs: Vital Signs Temp 97.9 F 09/09/23 15:19 Pulse 80 09/09/23 15:19 Resp 16 09/09/23 15:19 BP 115/61 09/09/23 15:19 Pulse Ox 98 09/09/23 15:19 FiO2 Intake & Output 09/08/23 09/09/23 09/09/23 18:59 06:59 18:59 Weight 91.172 kg Home Medications: Home Medications Medication Instructions Recorded Confirmed Type Furosemide [Lasix] 40 mg PO DAILY 10/13/13 09/09/23 History Omeprazole [PriLOSEC] 40 mg PO DAILY 10/13/13 09/09/23 History Potassium Chloride [Klor-Con 20] 20 meq PO BID 10/13/13 09/09/23 History allopurinoL [Zyloprim] 300 mg PO DAILY 10/13/13 09/09/23 History metFORMIN HCL [Glucophage] 1,000 mg PO BID 10/13/13 09/09/23 History Atorvastatin [Lipitor] 10 mg PO DAILY 10/21/15 09/09/23 History Aspirin 325 mg PO DAILY #30 tab 10/31/15 09/09/23 Rx Hydrocortisone [Cortef] 10 mg PO DAILY 02/09/22 09/09/23 History lisinopriL [Zestril] 2.5 mg PO DAILY 07/15/23 09/09/23 History
== END ==
LOC: 3 N SLEEP 14:51
PROVIDERS: ATTEND Internal Medicine
DX: G47.33 Obstructive sleep apnea (adult) (pediatric) (principal); I10 Essential (primary) hypertension; E11.9 Type 2 diabetes mellitus without complications; K21.9 Gastro-esophageal reflux disease without esophagitis; M10.9 Gout, unspecified; Z96.643 Presence of artificial hip joint, bilateral; Z99.89 Dependence on other enabling machines and devices; Z79.84 Long term (current) use of oral hypoglycemic drugs; Z79.899 Other long term (current) drug therapy
CPT/HCPCS: 99212

== ENCOUNTER → 2024-02-03 | Outpatient (CLI) | payer MEDICARE, BC ==
[2024-02-03 10:06] VITALS: BP 161/73; PULSE 78; RESP 16; TEMP 97.7
--- NOTE | 2024-02-03 11:12 | P.PROGSL ---
Subjective DATE: 02/02/2024 FOLLOW UP VISIT. Patient with obstructive sleep apnea hypopnea syndrome return to sleep center for follow-up visit. Information from previous visit have been reviewed. Patient is using PAP equipment every night for the whole night, getting PAP supplies in time. During previous visit because of motor life expectancy was exceeded and machine was noisy patient was recommended to receive new BiPAP unit, but he is still using old BiPAP unit because [employer] company did not supplies him with a new BiPAP unit. [place] sleepiness scale is 1, which is normal. I checked information from PAP unit. Motor life expectancy exceeded. BPAP unit pressure 14/10 cm H2O. Usage is 100% for more then 4 hours, average 7.7 hours per night. Leak is 26 l/m, which is in acceptable range. Apnea Hypopnea Index is 0.1, which is normal. MEDICATIONS have been reviewed, please see below. During physical exam: GENERAL: A pleasant patient without any distress. VITAL SIGNS: Please see below, weight is 207 lbs. HEENT: PERRLA, EOMI.low position of soft palate, Mallapati 3 . NECK: Supple. No JVD. LUNGS: Clear to percussion and to auscultation. Good air exchange. No wheezing or rhonchi. HEART: S1, S2 regular. ABDOMEN: Soft and nontender.[] EXTREMITIES: No clubbing or cyanosis. CLERICAL SUPPORT: Awake, alert, and oriented x3. No focal deficit. Impressions: 1. Obstructive sleep apnea-hypopnea syndrome. Patient demonstrated great compliance with treatment, benefiting from treatment. BiPAP unit is old, motor life expectancy exceeded, unit is noisy. 2. Hypertension. 3. Diabetes mellitus. 4. Acid reflux. 5. Gout. 6. Status post bilateral hip replacement. Plan: 1. Continue using PAP equipment every night for the whole night. To replace BiPAP unit, BiPAP. His old, noisy, motor life expectancy was exceeded. 2. Sleep hygiene with regular time in bed for at least 7.5-8 hours 3. PAP unit should stay lower then position of the head. 4. Advised patient to remove all remaining water from humidifier canister daily and make it dry after each usage. Refill canister with fresh distilled water before each usage. 5. Watching weight. 6. Precautions related to driving. No driving if feel any sleepiness. 7. I will maintain prescription for PAP supplies including mask, tube, filters. 8. Follow up visit in 1-3 months after patient will get new BiPAP unit to check compliance with treatment and make any adjustments if necessary. Thank you very much for allowing me to participate in the management of your patient. Donnie Montgomery MD, PhD, FAASM. Diplomat of [place] Board of Sleep Medicine, Sleep Medicine Board by [place] Board of Internal Medicine Machine Oiler of [facility] [place] cc: Geo Wisdom MD, Gabriela Lares MD Objective - Vital Signs Vital Signs: Vital Signs Temp 97.7 F 02/03/24 10:04 Pulse 78 02/03/24 10:04 Resp 16 02/03/24 10:04 BP 161/73 02/03/24 10:04 Pulse Ox 100 02/03/24 10:04 FiO2 Intake & Output 02/02/24 02/03/24 02/03/24 18:59 06:59 18:59 Weight 93.894 kg Home Medications: Home Medications Medication Instructions Recorded Confirmed Type Furosemide [Lasix] 20 mg PO DAILY 10/13/13 09/09/23 History Omeprazole [PriLOSEC] 40 mg PO DAILY 10/13/13 02/03/24 History Potassium Chloride [Klor-Con 20] 20 meq PO BID 10/13/13 02/03/24 History allopurinoL [Zyloprim] 300 mg PO DAILY 10/13/13 02/03/24 History metFORMIN HCL [Glucophage] 1,000 mg PO BID 10/13/13 02/03/24 History Atorvastatin [Lipitor] 10 mg PO DAILY 10/21/15 02/03/24 History Aspirin 325 mg PO DAILY #30 tab 10/31/15 02/03/24 Rx Hydrocortisone [Cortef] 10 mg PO DAILY 02/09/22 09/09/23 History lisinopriL [Zestril] 2.5 mg PO DAILY 07/15/23 02/03/24 History Furosemide [Lasix] 20 mg PO DAILY 02/03/24 02/03/24 History
== END ==
LOC: 3 N SLEEP 09:56
PROVIDERS: ATTEND Internal Medicine
DX: G47.33 Obstructive sleep apnea (adult) (pediatric) (principal); I10 Essential (primary) hypertension; E11.9 Type 2 diabetes mellitus without complications; K21.9 Gastro-esophageal reflux disease without esophagitis; M10.9 Gout, unspecified; Z96.643 Presence of artificial hip joint, bilateral; Z99.89 Dependence on other enabling machines and devices; Z79.899 Other long term (current) drug therapy; Z79.84 Long term (current) use of oral hypoglycemic drugs
CPT/HCPCS: 99212

== ENCOUNTER → 2024-03-22 | Outpatient (CLI) | payer MEDICARE, BC ==
[2024-03-22 16:20] LABS: BUN/Creat Ratio 24.43 Ratio (12.00-20.00); Blood Urea Nitrogen 17.1 mg/dL (9.0-27.0); Calcium 9.7 mg/dL (8.7-10.3); Carbon Dioxide 27.8 mmol/L (21.6-31.8); Chloride 93 mmol/L (96-109); Glucose 106 mg/dL (70-110); Potassium 4.2 mmol/L (3.5-5.5); Sodium 134 mmol/L (135-145)
== END | disposition home or self-care (01) ==
LOC: LABWHC1 09:13
PROVIDERS: ATTEND Family Medicine
DX: E11.9 Type 2 diabetes mellitus without complications (principal); E11.29 Type 2 diabetes mellitus with other diabetic kidney complication
CPT/HCPCS: 36415; 80048; 83036

== ENCOUNTER → 2024-05-31 | Outpatient (CLI) | payer MEDICARE, BC ==
[2024-05-31 10:29] VITALS: BP 122/70; PULSE 62; RESP 16; TEMP 98.1
--- NOTE | 2024-05-31 10:51 | P.PROGSL ---
Subjective DATE: 05/31/2024 FOLLOW UP VISIT. Patient with obstructive sleep apnea hypopnea syndrome return to sleep center for follow-up visit. Information from previous visit have been reviewed. This is first visit after patient started to use new BPAP unit. Patient is using PAP equipment every night for the whole night, getting PAP supplies in time. The patient does not have significant problems with the mask, PAP unit and humidification. [place] sleepiness scale is 1, which is perfect. I checked information from PAP unit. PAP unit pressure 14/10 cm H2O. Usage is 97% for more then 4 hours, average 7.5 hours per night. Leak is 20.4 l/m, which is in acceptable range. Apnea Hypopnea Index is 0.1, which is perfect. MEDICATIONS have been reviewed, please see below. During physical exam: GENERAL: A pleasant patient without any distress. VITAL SIGNS: Please see below, weight is 202 lbs. HEENT: PERRLA, EOMI.low position of soft palate, Mallapati 3. NECK: Supple. No JVD. LUNGS: Clear to percussion and to auscultation. Good air exchange. No wheezing or rhonchi. HEART: S1, S2 regular. ABDOMEN: Soft and nontender.[] EXTREMITIES: No clubbing or cyanosis. SAGGER SOAK: Awake, alert, and oriented x3. No focal deficit. Impressions: 1. Obstructive sleep apnea-hypopnea syndrome. Patient demonstrated great compliance with treatment, benefiting from treatment. 2. Hypertension. 3. Diabetes mellitus, recent hemoglobin A1C according to patient 5.7. 4. Status post bilateral hip replacement. 5. Acid reflux. 6. Gout. Plan: 1. Continue using PAP equipment every night for the whole night. 2. Sleep hygiene with regular time in bed for at least 7.5-8 hours 3. PAP unit should stay lower then position of the head. 4. Advised patient to remove all remaining water from humidifier canister daily and make it dry after each usage. Refill canister with fresh distilled water before each usage. 5. Watching weight. 6. Precautions related to driving. No driving if feel any sleepiness. 7. I will maintain prescription for PAP supplies including mask, tube, filters. 8. Follow up visit in 8 months or earlier if patient has any problems. Thank you very much for allowing me to participate in the management of your patient. Donnie Montgomery MD, PhD, FAASM. Diplomat of [place] [employer] of Sleep Medicine, Sleep Medicine Board by [place] [employer] Medicine Ch[place] Builder of [facility] [place] Objective - Vital Signs Vital Signs: Vital Signs Temp 98.1 F 05/31/24 10:27 Pulse 62 05/31/24 10:27 Resp 16 05/31/24 10:27 BP 122/70 05/31/24 10:27 Pulse Ox 100 05/31/24 10:27 FiO2 Intake & Output 05/30/24 05/31/24 05/31/24 18:59 06:59 18:59 Weight 91.626 kg Home Medications: Home Medications Medication Instructions Recorded Confirmed Type Furosemide [Lasix] 20 mg PO DAILY 10/13/13 09/09/23 History Omeprazole [PriLOSEC] 40 mg PO DAILY 10/13/13 02/03/24 History Potassium Chloride [Klor-Con 20] 20 meq PO BID 10/13/13 02/03/24 History allopurinoL [Zyloprim] 300 mg PO DAILY 10/13/13 02/03/24 History metFORMIN HCL [Glucophage] 1,000 mg PO BID 10/13/13 02/03/24 History Atorvastatin [Lipitor] 10 mg PO DAILY 10/21/15 02/03/24 History Aspirin 325 mg PO DAILY #30 tab 10/31/15 02/03/24 Rx Hydrocortisone [Cortef] 10 mg PO DAILY 02/09/22 09/09/23 History lisinopriL [Zestril] 2.5 mg PO DAILY 07/15/23 02/03/24 History Furosemide [Lasix] 20 mg PO DAILY 02/03/24 02/03/24 History
== END ==
LOC: 3 N SLEEP 10:18
PROVIDERS: ATTEND Internal Medicine
DX: G47.33 Obstructive sleep apnea (adult) (pediatric) (principal); I10 Essential (primary) hypertension; E11.9 Type 2 diabetes mellitus without complications; K21.9 Gastro-esophageal reflux disease without esophagitis; M10.9 Gout, unspecified; Z96.649 Presence of unspecified artificial hip joint
CPT/HCPCS: 99212